=== PATIENT | male | born 1965 | race Caucasian/White ===

== ENCOUNTER → 2016-10-29 | Outpatient (REF) | payer MEDICARE ==
[~2016-10-29] MED LIST: ADDE10CA PO
[2016-10-29 14:47] LABS: ALBUMIN/GLOBULIN RATIO 1.38 (1.00-1.93); ALKALINE PHOSPHATASE 116 U/L (45-117); ALT/SGPT 19 U/L (12-78); ANION GAP 8 MEQ/L (8-16); AST/SGOT 16 U/L (15-37); BILIRUBIN,TOTAL 0.2 MG/DL (0.2-1.0); BLOOD UREA NITROGEN 5 MG/DL (7-18); CARBON DIOXIDE LEVEL 30 MEQ/L (21-32); CHLORIDE LEVEL 105 MEQ/L (98-107); CHOLESTEROL LEVEL 192 MG/DL (<200); CREATININE FOR GFR 1.09 MG/DL (0.70-1.30); GLOMERULAR FILTRATION RATE > 60.0 (>56); GLUCOSE, FASTING 102 MG/DL (70-105); POTASSIUM SERUM 4.5 MEQ/L (3.5-5.1); SODIUM LEVEL 143 MEQ/L (136-145); TOTAL PROTEIN 6.9 GM/DL (6.4-8.2); TRIGLYCERIDES LEVEL 223 MG/DL (<150)
[2016-10-31 00:06] LABS: %CD3+CD4+CD8+ 2.3 % (Not Estab.); %CD3+CD4+CD8- 44.3 % (Not Estab.); %CD3+CD4-CD8+ 25.2 % (Not Estab.); %CD3+CD4-CD8- 0.9 % (Not Estab.); ABS CD3+CD4+CD8+ 74 /uL (Not Estab.); ABS CD3+CD4+CD8- 1418 /uL (Not Estab.); ABS CD3+CD4-CD8+ 806 /uL (Not Estab.); ABS CD3+CD4-CD8- 29 /uL (Not Estab.); CD4/CD8 NYSDOH RATIO 1.76 (Not Estab.); Eosinophils 2 % (.); HGB 14.8 g/dL (12.6-17.7); Monocytes 8 % (.); Neutrophils 57 % (.); WBC 10.5 x10E3/uL (3.4-10.8)
== END | disposition home or self-care (01) ==
LOC: M SFHCPLAZ 12:25
PROVIDERS: ATTEND Internal Medicine Infectious Disease
DX: B20 Human immunodeficiency virus [HIV] disease (principal); E78.2 Mixed hyperlipidemia; Z12.5 Encounter for screening for malignant neoplasm of prostate; E83.52 Hypercalcemia; Z23 Encounter for immunization
CPT/HCPCS: 36415; 80053; 80061; 83970; 86360; 86780; 87536; 90686; G0008; G0103; G0463

== ENCOUNTER → 2017-04-03 | Outpatient (REF) | payer MEDICARE, MEDICAID ==
[~2017-04-03] MED LIST changes: -ADDE10CA PO; +ADDE10CA3 PO
[2017-04-03 18:46] LABS: ALBUMIN 3.9 GM/DL (3.2-5.2); ALKALINE PHOSPHATASE 122 U/L (45-117); ALT/SGPT 17 U/L (12-78); ANION GAP 5 MEQ/L (8-16); AST/SGOT 10 U/L (15-37); BILIRUBIN,TOTAL 0.3 MG/DL (0.2-1.0); BLOOD UREA NITROGEN 6 MG/DL (7-18); CALCIUM LEVEL 10.5 MG/DL (8.5-10.1); CARBON DIOXIDE LEVEL 27 MEQ/L (21-32); CHLORIDE LEVEL 108 MEQ/L (98-107); CREATININE FOR GFR 1.05 MG/DL (0.70-1.30); GLOMERULAR FILTRATION RATE > 60.0 (>56); GLUCOSE, FASTING 103 MG/DL (70-105); POTASSIUM SERUM 4.3 MEQ/L (3.5-5.1); SODIUM LEVEL 140 MEQ/L (136-145); TOTAL PROTEIN 6.9 GM/DL (6.4-8.2)
[2017-04-07 14:10] LABS: CHLAMYDIA RECTAL APTIMA Negative (Negative); GC RECTAL APTIMA Negative (Negative)
[2017-04-07 14:10] LABS: %CD3+CD4+CD8+ 2.7 % (Not Estab.); %CD3+CD4+CD8- 47.2 % (Not Estab.); %CD3+CD4-CD8+ 25.9 % (Not Estab.); %CD3+CD4-CD8- 1.2 % (Not Estab.); ABS CD3+CD4+CD8+ 84 /uL (Not Estab.); ABS CD3+CD4+CD8- 1463 /uL (Not Estab.); ABS CD3+CD4-CD8+ 803 /uL (Not Estab.); ABS CD3+CD4-CD8- 37 /uL (Not Estab.); CD4/CD8 NYSDOH RATIO 1.82 (Not Estab.); CHLAMYDIA PHARYNGEAL APTIMA Negative (Negative); Eosinophils 3 % (.); GC PHARYNGEAL APTIMA Negative (Negative); HCT 41.9 % (37.5-51.0); HGB 14.1 g/dL (12.6-17.7); Monocytes 9 % (.); Neutrophils 50 % (.); WBC 8.7 x10E3/uL (3.4-10.8)
== END ==
LOC: M SFHCPLAZ 14:05
PROVIDERS: ATTEND Internal Medicine Infectious Disease
DX: B20 Human immunodeficiency virus [HIV] disease (principal); A09 Infectious gastroenteritis and colitis, unspecified; F17.210 Nicotine dependence, cigarettes, uncomplicated; Z88.8 Allergy status to other drugs, medicaments and biological substances; Z11.3 Encounter for screening for infections with a predominantly sexual mode of transmission; Z72.53 High risk bisexual behavior
CPT/HCPCS: 36415; 80053; 86360; 86780; 87491; 87536; 87591; 88108; 93005; G0463

== ENCOUNTER → 2017-09-23 | Outpatient (REF) | payer MEDICARE ==
[2017-09-23 16:11] LABS: ALBUMIN 4.3 GM/DL (3.2-5.2); ALBUMIN/GLOBULIN RATIO 1.39 (1.00-1.93); ALKALINE PHOSPHATASE 131 U/L (45-117); ALT/SGPT 24 U/L (12-78); ANION GAP 7 MEQ/L (8-16); AST/SGOT 19 U/L (7-37); BILIRUBIN,TOTAL 0.6 MG/DL (0.2-1.0); BLOOD UREA NITROGEN 8 MG/DL (7-18); CALCIUM LEVEL 9.9 MG/DL (8.5-10.1); CARBON DIOXIDE LEVEL 26 MEQ/L (21-32); CHLORIDE LEVEL 105 MEQ/L (98-107); CHOLESTEROL LEVEL 199 MG/DL (<200); CREATININE FOR GFR 1.08 MG/DL (0.70-1.30); GLOMERULAR FILTRATION RATE > 60.0 (>56); GLUCOSE, FASTING 117 MG/DL (70-105); HDL CHOLESTEROL 27 MG/DL (>40); LDL CHOLESTEROL 116.6 MG/DL (<100); NON-HDL-C 172 MG/DL; POTASSIUM SERUM 4.4 MEQ/L (3.5-5.1); SODIUM LEVEL 138 MEQ/L (136-145); THYROID STIMULATING HORMONE 0.764 uIU/ML (0.358-3.740); TOTAL PROTEIN 7.4 GM/DL (6.4-8.2); TRIGLYCERIDES LEVEL 277 MG/DL (<150)
[2017-09-23 18:21] LABS: APPEARANCE, URINE CLEAR (CLEAR); BACTERIA, URINE AUTO NEGATIVE (NEGATIVE); BILIRUBIN, URINE AUTO NEGATIVE (NEGATIVE); BLOOD, URINE BLOOD NEGATIVE (NEGATIVE); COLOR, URINE YELLOW (YELLOW); GLUCOSE, URINE (UA) AUTO NEGATIVE (NEGATIVE); KETONE, URINE AUTO NEGATIVE (NEGATIVE); LEUKOCYTE ESTERASE, URINE AUTO NEGATIVE (NEGATIVE); NITRITE, URINE AUTO NEGATIVE (NEGATIVE); PROTEIN, URINE AUTO NEGATIVE (NEGATIVE); RBC, URINE AUTO 5 /HPF (0-3); SPECIFIC GRAVITY URINE AUTO 1.008 (1.002-1.035); SQUAMOUS EPITHELIAL CELL UR AU 0 /HPF (0-6); UROBILINOGEN, URINE AUTO 0.2 mg/dL (0.0-2.0); WBC, URINE AUTO 1 /HPF (0-3)
[2017-09-23 21:15] LABS: CHLAMYDIA DNA AMPLIFICATION NEGATIVE (NEGATIVE); GC DNA AMPLIFICATION NEGATIVE (NEGATIVE)
[2017-09-27 00:06] LABS: % CD8 Pos Lymph 29.6 % (12.0-35.5); %CD4 Pos Lymphs 48.4 % (30.8-58.5); ABS Basophils 0.1 x10E3/uL (0.0-0.2); ABS Eosinophils 0.3 x10E3/uL (0.0-0.4); ABS Lymphs 3.1 x10E3/uL (0.7-3.1); ABS Monocytes 0.8 x10E3/uL (0.1-0.9); ABS Neutophils 7.3 x10E3/uL (1.4-7.0); Abs CD4 Helper 1500 /uL (359-1519); Abs CD8 Suppres 918 /uL (109-897); CD4/CD8 Ratio 1.64 (0.92-3.72); Eosinophils 3 % (Not Estab.); HCT 44.5 % (37.5-51.0); HGB 14.6 g/dL (13.0-17.7); HIV-1 RNA PCR QUANT 2 LC550285 <20 copies/mL (.); Immature Grans 0 % (Not Estab.); Lymphocytes 27 % (Not Estab.); MCH 30.9 pg (26.6-33.0); MCHC 32.8 g/dL (31.5-35.7); MCV 94 fL (79-97); Monocytes 7 % (Not Estab.); Neutrophils 62 % (Not Estab.); Platelets 281 x10E3/uL (150-379); QUANTIFERON GOLD TB Negative (Negative); RBC 4.72 x10E6/uL (4.14-5.80); RDW 14.4 % (12.3-15.4); TB Test (QFT) Antigen 0.03 IU/mL (.); TB Test (QFT) Antigen Minus Ni <0.01 IU/mL (.); TB Test (QFT) Mitogen 9.52 IU/mL (.); TB Test (QFT) Nil 0.05 IU/mL (.); WBC 11.6 x10E3/uL (3.4-10.8)
== END ==
LOC: M SFHCPLAZ 13:58
DX: B20 Human immunodeficiency virus [HIV] disease (principal); I10 Essential (primary) hypertension; E78.2 Mixed hyperlipidemia; Z23 Encounter for immunization
CPT/HCPCS: 84443

== ENCOUNTER → 2017-12-22 | Outpatient (REF) | payer MEDICARE | LOC: M SFHCLERA 12:06 | DX: L72.0 Epidermal cyst (principal) | CPT/HCPCS: 88305 ==

== ENCOUNTER → 2018-05-04 | Outpatient (REF) | payer MEDICARE ==
[2018-05-04 13:34] LABS: APPEARANCE, URINE CLEAR (CLEAR); BACTERIA, URINE AUTO NEGATIVE (NEGATIVE); BILIRUBIN, URINE AUTO NEGATIVE (NEGATIVE); BLOOD, URINE BLOOD NEGATIVE (NEGATIVE); COLOR, URINE STRAW (YELLOW); GLUCOSE, URINE (UA) AUTO NEGATIVE (NEGATIVE); KETONE, URINE AUTO NEGATIVE (NEGATIVE); LEUKOCYTE ESTERASE, URINE AUTO NEGATIVE (NEGATIVE); NITRITE, URINE AUTO NEGATIVE (NEGATIVE); PROTEIN, URINE AUTO NEGATIVE (NEGATIVE); RBC, URINE AUTO 0 /HPF (0-3); SPECIFIC GRAVITY URINE AUTO 1.002 (1.002-1.035); SQUAMOUS EPITHELIAL CELL UR AU 0 /HPF (0-6); UROBILINOGEN, URINE AUTO 0.2 mg/dL (0.0-2.0); WBC, URINE AUTO 0 /HPF (0-3)
[2018-05-04 14:42] LABS: CHLAMYDIA DNA AMPLIFICATION NEGATIVE (NEGATIVE); GC DNA AMPLIFICATION NEGATIVE (NEGATIVE)
== END ==
LOC: M SMT 12:49
DX: N50.819 Testicular pain, unspecified (principal); B20 Human immunodeficiency virus [HIV] disease
CPT/HCPCS: 80053; 81001

== ENCOUNTER → 2018-05-04 | Outpatient (REF) | payer MEDICARE ==
[2018-05-04 16:50] LABS: ALBUMIN 3.6 GM/DL (3.2-5.2); ALBUMIN/GLOBULIN RATIO 1.06 (1.00-1.93); ALKALINE PHOSPHATASE 140 U/L (45-117); ALT/SGPT 21 U/L (12-78); ANION GAP 12 MEQ/L (8-16); AST/SGOT 17 U/L (7-37); BILIRUBIN,TOTAL 0.3 MG/DL (0.2-1.0); BLOOD UREA NITROGEN 6 MG/DL (7-18); CALCIUM LEVEL 10.2 MG/DL (8.5-10.1); CARBON DIOXIDE LEVEL 21 MEQ/L (21-32); CHLORIDE LEVEL 110 MEQ/L (98-107); CREATININE FOR GFR 1.18 MG/DL (0.70-1.30); GLOMERULAR FILTRATION RATE > 60.0 (>56); GLUCOSE, FASTING 140 MG/DL (70-100); POTASSIUM SERUM 4.3 MEQ/L (3.5-5.1); SODIUM LEVEL 143 MEQ/L (136-145)
== END ==
LOC: M SFHCPLAZ 13:17
DX: B20 Human immunodeficiency virus [HIV] disease (principal)
CPT/HCPCS: 80053

== ENCOUNTER → 2018-06-29 | Outpatient (CLI) | payer MEDICARE | LOC: M RAD 13:19 | DX: N50.3 Cyst of epididymis (principal); N50.89 Other specified disorders of the male genital organs | CPT/HCPCS: 76870 ==

== ENCOUNTER → 2018-07-28 | Outpatient (REF) | payer MEDICARE ==
[2018-07-28 10:45] LABS: HEMATOCRIT 45.2 % (42.0-52.0); HEMOGLOBIN 15.3 g/dl (13.5-17.5); MEAN CORPUSCULAR HEMOGLOBIN 31.2 pg (27.0-33.0); MEAN CORPUSCULAR HGB CONC 33.8 g/dl (32.0-36.5); MEAN CORPUSCULAR VOLUME 92.2 fl (80.0-96.0); PLATELET COUNT, AUTOMATED 245 10^3/uL (150-450); RED CELL DISTRIBUTION WIDTH 13.1 % (11.5-14.5); WHITE BLOOD COUNT 10.1 10^3/uL (4.0-10.0)
[2018-07-28 10:58] LABS: INR 1.04; PARTIAL THROMBOPLASTIN TIME 31.6 SECONDS (25.4-37.6); PROTHROMBIN TIME 13.7 SECONDS (12.1-14.4)
[2018-07-28 11:11] LABS: ANION GAP 9 MEQ/L (8-16); BLOOD UREA NITROGEN 6 MG/DL (7-18); CALCIUM LEVEL 10.1 MG/DL (8.5-10.1); CARBON DIOXIDE LEVEL 21 MEQ/L (21-32); CHLORIDE LEVEL 109 MEQ/L (98-107); CREATININE FOR GFR 1.16 MG/DL (0.70-1.30); GLOMERULAR FILTRATION RATE > 60.0 (>56); GLUCOSE, FASTING 109 MG/DL (70-100); POTASSIUM SERUM 4.5 MEQ/L (3.5-5.1); SODIUM LEVEL 139 MEQ/L (136-145)
== END ==
LOC: M LABSMT 08:42
DX: Z01.818 Encounter for other preprocedural examination (principal); N50.3 Cyst of epididymis; B20 Human immunodeficiency virus [HIV] disease; Z23 Encounter for immunization
CPT/HCPCS: 80048

== ENCOUNTER 2018-08-11 13:10 | Day surgery (SDC) | payer MEDICARE ==
[2018-08-11] MEDS ORDERED: ceFAZolin 2 GM/D5W 50 ML IV BAG (J0690 PER 500MG) As Ordered (13:25)
[2018-08-11] MEDS: LR 1,000 ML IV (14:07)
[2018-08-11] MEDS ORDERED: PROPOFOL 200 MG/20 ML VIAL As Ordered (15:13)
[2018-08-11] MEDS ORDERED: LIDOCAINE 2% INJ 100 MG/5 ML SDV (FOR ANES.) As Ordered (15:13)
[2018-08-11] MEDS ORDERED: MIDAZOLAM INJ 2 MG/2 ML VIAL (J2250) As Ordered (15:14)
[2018-08-11] MEDS ORDERED: fentaNYL 250 MCG/5 ML INJECTION (J3010) As Ordered (15:14)
[2018-08-11] MEDS: LIDOCAINE 1% SDV INJ 30 ML VIAL As Ordered (16:23)
[2018-08-11] MEDS: BUPIVACAINE HCL 0.25% 30 ML VIAL As Ordered (16:23)
[2018-08-11] MEDS ORDERED: ONDANSETRON 4MG/2ML VIAL (J2405) As Ordered (17:02)
[2018-08-11] MEDS ORDERED: KETOROLAC 60 MG/2 ML VIAL (J1885) As Ordered (17:02)
[2018-08-11] MEDS ORDERED: dexameTHASONE 4 MG/ML 1ML VIAL (J1100) As Ordered ×2 (17:03)
[2018-08-11] MEDS: BACITRACIN OINT 30GM As Ordered (17:19)
[2018-08-11] MEDS: PERCOCET 5MG/325MG TAB PO (17:40)
[2018-08-11] MEDS ORDERED: ONDANSETRON 4MG/2ML VIAL (J2405) IV (17:45)
[2018-08-11] MEDS ORDERED: PERCOCET 5MG/325MG TAB PO ×2 (17:45)
[2018-08-11] MEDS ORDERED: fentaNYL 100 MCG/2 ML INJECTION (J3010) IV (17:45)
== END 2018-08-11 18:35 | disposition home or self-care (01) ==
LOC: M SDC 13:10
DX: N50.3 Cyst of epididymis (principal); N50.89 Other specified disorders of the male genital organs; I10 Essential (primary) hypertension; E78.00 Pure hypercholesterolemia, unspecified; K21.9 Gastro-esophageal reflux disease without esophagitis; B20 Human immunodeficiency virus [HIV] disease; M12.9 Arthropathy, unspecified; M50.10 Cervical disc disorder with radiculopathy, unspecified cervical region; M79.7 Fibromyalgia; M81.0 Age-related osteoporosis without current pathological fracture; K59.01 Slow transit constipation; E83.52 Hypercalcemia; J44.9 Chronic obstructive pulmonary disease, unspecified; L40.9 Psoriasis, unspecified; F41.9 Anxiety disorder, unspecified; F32.9 Major depressive disorder, single episode, unspecified; F43.10 Post-traumatic stress disorder, unspecified; G47.33 Obstructive sleep apnea (adult) (pediatric); G47.00 Insomnia, unspecified; J84.112 Idiopathic pulmonary fibrosis; Z79.899 Other long term (current) drug therapy; Z85.828 Personal history of other malignant neoplasm of skin; Z72.0 Tobacco use
CPT/HCPCS: 54860

== ENCOUNTER → 2018-11-24 | Outpatient (REF) | payer MEDICARE ==
[~2018-11-24] MED LIST changes: +ALEN70TA57; +AMLO10TA5; +BACL10TA8; +CLON0.5T8; +DESC1TAB; +DEXI60CA2; +FLUT05CR TOP; +IBUP-354; +INCR1INH INH; +LIPI20TA PO; +LYRI150C; +MIRT15TA3 PO; +NIZO2SHA TOP; +PERC7.5T11 PO; +PRAZ1CAP; +ROPI1TAB; +TIVI1TAB; +VENTAER
[2018-11-24 15:57] LABS: APPEARANCE, URINE HAZY (CLEAR); BACTERIA, URINE AUTO 1+ (NEGATIVE); BILIRUBIN, URINE AUTO NEGATIVE (NEGATIVE); BLOOD, URINE BLOOD NEGATIVE (NEGATIVE); COLOR, URINE YELLOW (YELLOW); GLUCOSE, URINE (UA) AUTO NEGATIVE (NEGATIVE); KETONE, URINE AUTO NEGATIVE (NEGATIVE); LEUKOCYTE ESTERASE, URINE AUTO NEGATIVE (NEGATIVE); NITRITE, URINE AUTO NEGATIVE (NEGATIVE); PROTEIN, URINE AUTO NEGATIVE (NEGATIVE); RBC, URINE AUTO 2 /HPF (0-3); SPECIFIC GRAVITY URINE AUTO 1.005 (1.002-1.035); SQUAMOUS EPITHELIAL CELL UR AU 0 /HPF (0-6); UROBILINOGEN, URINE AUTO 0.2 mg/dL (0.0-2.0); WBC, URINE AUTO 0 /HPF (0-3)
[2018-11-24 16:04] LABS: ALBUMIN 3.9 GM/DL (3.2-5.2); ALT/SGPT 25 U/L (12-78); BILIRUBIN,TOTAL 0.4 MG/DL (0.2-1.0); BLOOD UREA NITROGEN 7 MG/DL (7-18); CALCIUM LEVEL 9.8 MG/DL (8.5-10.1); CARBON DIOXIDE LEVEL 28 MEQ/L (21-32); CHLORIDE LEVEL 109 MEQ/L (98-107); CHOLESTEROL LEVEL 164 MG/DL (<200); CHOLESTEROL RISK RATIO 6.833 (<5); GLOMERULAR FILTRATION RATE > 60.0 (>56); GLUCOSE, FASTING 93 MG/DL (70-100); HDL CHOLESTEROL 24 MG/DL (>40); LDL CHOLESTEROL 72 MG/DL (<100); NON-HDL-C 140 MG/DL; POTASSIUM SERUM 4.4 MEQ/L (3.5-5.1); SODIUM LEVEL 142 MEQ/L (136-145); TRIGLYCERIDES LEVEL 338 MG/DL (<150)
[2018-11-24 16:14] LABS: TOTAL 25(OH) VITAMIN D 16.5 NG/ML (30.0-100.0)
[2018-11-28 00:06] LABS: % CD8 Pos Lymph 27.1 % (12.0-35.5); %CD4 Pos Lymphs 49.9 % (30.8-58.5); ABS Basophils 0.1 x10E3/uL (0.0-0.2); ABS Eosinophils 0.3 x10E3/uL (0.0-0.4); ABS Lymphs 3.4 x10E3/uL (0.7-3.1); ABS Monocytes 0.9 x10E3/uL (0.1-0.9); ABS Neutophils 3.8 x10E3/uL (1.4-7.0); Abs CD4 Helper 1697 /uL (359-1519); Abs CD8 Suppres 921 /uL (109-897); CD4/CD8 Ratio 1.84 (0.92-3.72); Eosinophils 3 % (Not Estab.); HCT 44.2 % (37.5-51.0); HGB 15.1 g/dL (13.0-17.7); HIV-1 RNA PCR QUANT 2 LC550285 <20 copies/mL (.); Immature Grans 1 % (Not Estab.); Lymphocytes 40 % (Not Estab.); MCH 31.5 pg (26.6-33.0); MCHC 34.2 g/dL (31.5-35.7); MCV 92 fL (79-97); Monocytes 11 % (Not Estab.); Neutrophils 44 % (Not Estab.); Platelets 239 x10E3/uL (150-379); RBC 4.79 x10E6/uL (4.14-5.80); RDW 14.3 % (12.3-15.4); WBC 8.6 x10E3/uL (3.4-10.8)
== END ==
LOC: M SFHCPLAZ 13:00
PROVIDERS: ATTEND Internal Medicine Infectious Disease
DX: B20 Human immunodeficiency virus [HIV] disease (principal); M81.0 Age-related osteoporosis without current pathological fracture; I10 Essential (primary) hypertension
CPT/HCPCS: 36415; 80053; 80061; 81001; 82306; 86360; 86480; 87536; G0463

== ENCOUNTER → 2019-08-09 | Outpatient (REF) | payer MEDICARE, OTHER ==
[~2019-08-09] MED LIST changes: -ALEN70TA57; +ALEN70TA74; +CLON0.5T2; -CLON0.5T8
[2019-08-09 16:40] LABS: ALBUMIN 3.6 GM/DL (3.2-5.2); ALT/SGPT 26 U/L (12-78); BILIRUBIN,TOTAL 0.5 MG/DL (0.2-1.0); BLOOD UREA NITROGEN 7 MG/DL (7-18); CALCIUM LEVEL 9.7 MG/DL (8.5-10.1); CARBON DIOXIDE LEVEL 27 MEQ/L (21-32); CHLORIDE LEVEL 106 MEQ/L (98-107); CHOLESTEROL LEVEL 133 MG/DL (<200); CHOLESTEROL RISK RATIO 5.541 (<5); GLOMERULAR FILTRATION RATE > 60.0 (>56); GLUCOSE, FASTING 110 MG/DL (70-100); HDL CHOLESTEROL 24 MG/DL (>40); LDL CHOLESTEROL 66 MG/DL (<100); NON-HDL-C 109 MG/DL; POTASSIUM SERUM 4.4 MEQ/L (3.5-5.1); SODIUM LEVEL 138 MEQ/L (136-145); TOTAL PROTEIN 6.6 GM/DL (6.4-8.2); TRIGLYCERIDES LEVEL 213 MG/DL (<150)
[2019-08-09 16:46] LABS: TOTAL 25(OH) VITAMIN D 46.8 NG/ML (30.0-100.0)
[2019-08-09 17:56] LABS: CHLAMYDIA DNA AMPLIFICATION NEGATIVE (NEGATIVE); GC DNA AMPLIFICATION NEGATIVE (NEGATIVE)
[2019-08-13 00:07] LABS: % CD8 Pos Lymph 32.2 % (12.0-35.5); %CD4 Pos Lymphs 47.4 % (30.8-58.5); ABS Basophils 0.1 x10E3/uL (0.0-0.2); ABS Eosinophils 0.3 x10E3/uL (0.0-0.4); ABS Lymphs 3.1 x10E3/uL (0.7-3.1); ABS Monocytes 0.9 x10E3/uL (0.1-0.9); ABS Neutophils 7.1 x10E3/uL (1.4-7.0); Abs CD4 Helper 1469 /uL (359-1519); Abs CD8 Suppres 998 /uL (109-897); CD4/CD8 Ratio 1.47 (0.92-3.72); Eosinophils 2 % (Not Estab.); HCT 43.3 % (37.5-51.0); HGB 14.4 g/dL (13.0-17.7); HIV-1 RNA PCR QUANT 2 LC550285 <20 copies/mL (.); Immature Grans 0 % (Not Estab.); Lymphocytes 28 % (Not Estab.); MCH 30.6 pg (26.6-33.0); MCHC 33.3 g/dL (31.5-35.7); MCV 92 fL (79-97); Monocytes 8 % (Not Estab.); Neutrophils 62 % (Not Estab.); Platelets 207 x10E3/uL (150-450); WBC 11.4 x10E3/uL (3.4-10.8)
== END ==
LOC: M SFHCPLAZ 13:53
PROVIDERS: ATTEND Internal Medicine Infectious Disease
DX: B20 Human immunodeficiency virus [HIV] disease (principal); E55.9 Vitamin D deficiency, unspecified; L40.9 Psoriasis, unspecified
CPT/HCPCS: 36415; 80053; 80061; 82306; 86360; 86780; 87491; 87536; 87591; 90682; 90732; G0008; G0009; G0463

== ENCOUNTER → 2020-05-02 | Outpatient (REF) | payer MEDICARE, OTHER ==
[~2020-05-02] MED LIST changes: -AMLO10TA5; +AMLO1TAB25; -ROPI1TAB; +ROPI1TAB3
[2020-06-12 08:07] LABS: Abs CD4 Helper See Separate Report; HIV-1 RNA PCR QUANT 2 LC550285 SEE SEPARATE REPORT (NORMAL)
[2020-06-16 11:20] LABS: CALCIUM LEVEL 10.2 MG/DL (8.5-10.1); CHOLESTEROL RISK RATIO 6.2 (<5); PHOSPHORUS LEVEL 2.9 MG/DL (2.5-4.9)
== END | disposition home or self-care (01) ==
LOC: M SFHCPLAZ 14:45
PROVIDERS: ATTEND Internal Medicine Infectious Disease
DX: B20 Human immunodeficiency virus [HIV] disease (principal); Z79.899 Other long term (current) drug therapy

== ENCOUNTER → 2021-01-15 | Outpatient (CLI) | payer MEDICARE, OTHER ==
[~2021-01-15] MED LIST changes: -ALEN70TA74; +ALEN70TA82
[2021-01-15 14:54] LABS: APPEARANCE, URINE CLEAR (CLEAR); BACTERIA, URINE AUTO NEGATIVE (NEGATIVE); BILIRUBIN, URINE AUTO NEGATIVE (NEGATIVE); BLOOD, URINE BLOOD NEGATIVE (NEGATIVE); COLOR, URINE YELLOW (YELLOW); GLUCOSE, URINE (UA) AUTO NEGATIVE (NEGATIVE); KETONE, URINE AUTO NEGATIVE (NEGATIVE); LEUKOCYTE ESTERASE, URINE AUTO NEGATIVE (NEGATIVE); MUCUS, URINE SMALL (NEGATIVE); NITRITE, URINE AUTO NEGATIVE (NEGATIVE); PROTEIN, URINE AUTO NEGATIVE (NEGATIVE); RBC, URINE AUTO 1 /HPF (0-3); SPECIFIC GRAVITY URINE AUTO 1.011 (1.002-1.035); SQUAMOUS EPITHELIAL CELL UR AU 0 /HPF (0-6); UROBILINOGEN, URINE AUTO 0.2 mg/dL (0.0-2.0); WBC, URINE AUTO 2 /HPF (0-3)
[2021-01-15 15:28] LABS: ALBUMIN 3.9 GM/DL (3.2-5.2); ALT/SGPT 22 U/L (12-78); BILIRUBIN,TOTAL 0.3 MG/DL (0.2-1.0); BLOOD UREA NITROGEN 10 MG/DL (7-18); CALCIUM LEVEL 11.1 MG/DL (8.5-10.1); CARBON DIOXIDE LEVEL 27 MEQ/L (21-32); CHLORIDE LEVEL 109 MEQ/L (98-107); CREATININE FOR GFR 1.07 MG/DL (0.70-1.30); FREE T4 0.75 NG/DL (0.76-1.46); GLOMERULAR FILTRATION RATE > 60.0 (>56); GLUCOSE, FASTING 104 MG/DL (70-100); MAGNESIUM LEVEL 2.4 MG/DL (1.8-2.4); POTASSIUM SERUM 4.4 MEQ/L (3.5-5.1); SODIUM LEVEL 139 MEQ/L (136-145); TOTAL 25(OH) VITAMIN D 49.6 NG/ML (30.0-100.0); TOTAL PROTEIN 7.2 GM/DL (6.4-8.2)
[2021-01-18 02:07] LABS: % CD8 Pos Lymph 28.7 % (12.0-35.5); %CD4 Pos Lymphs 58.7 % (30.8-58.5); ABS Basophils 0.1 x10E3/uL (0.0-0.2); ABS Eosinophils 0.1 x10E3/uL (0.0-0.4); ABS Lymphs 2.1 x10E3/uL (0.7-3.1); ABS Monocytes 0.6 x10E3/uL (0.1-0.9); Abs CD4 Helper 1233 /uL (359-1519); Abs CD8 Suppres 603 /uL (109-897); CD4/CD8 Ratio 2.05 (0.92-3.72); Eosinophils 1 % (Not Estab.); HCT 43.9 % (37.5-51.0); HGB 14.9 g/dL (13.0-17.7); HIV-1 RNA PCR QUANT 2 LC550285 17500 copies/mL (.); HIV-1 RNA PCR QUANT 3 LC550285 4.243 (.); Imm ABS Grans 0.2 x10E3/uL (0.0-0.1); Immature Grans 2 % (Not Estab.); Lymphocytes 31 % (Not Estab.); MCH 31.5 pg (26.6-33.0); MCHC 33.9 g/dL (31.5-35.7); MCV 93 fL (79-97); Monocytes 8 % (Not Estab.); Neutrophils 57 % (Not Estab.); Platelets 274 x10E3/uL (150-450); RBC 4.73 x10E6/uL (4.14-5.80)
== END ==
LOC: M LAB 14:10
PROVIDERS: ATTEND Internal Medicine Infectious Disease
DX: M81.0 Age-related osteoporosis without current pathological fracture (principal); B20 Human immunodeficiency virus [HIV] disease; M54.41 Lumbago with sciatica, right side; R25.1 Tremor, unspecified; Z79.899 Other long term (current) drug therapy
CPT/HCPCS: 36415; 80053; 81001; 82306; 83735; 84439; 84443; 86360; 87086; 87536; G0463

== ENCOUNTER → 2021-01-15 | Outpatient (CLI) | payer MEDICARE, OTHER ==
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
== END ==
LOC: M PAIN 13:00
PROVIDERS: ATTEND Family Medicine
DX: M51.17 Intervertebral disc disorders with radiculopathy, lumbosacral region (principal); F33.9 Major depressive disorder, recurrent, unspecified; F41.1 Generalized anxiety disorder; G47.00 Insomnia, unspecified; E78.00 Pure hypercholesterolemia, unspecified; M79.7 Fibromyalgia; L40.9 Psoriasis, unspecified; G25.81 Restless legs syndrome; G89.29 Other chronic pain; K21.9 Gastro-esophageal reflux disease without esophagitis; J42 Unspecified chronic bronchitis; M81.0 Age-related osteoporosis without current pathological fracture; M50.10 Cervical disc disorder with radiculopathy, unspecified cervical region; I10 Essential (primary) hypertension; F43.10 Post-traumatic stress disorder, unspecified; F17.210 Nicotine dependence, cigarettes, uncomplicated; Z79.891 Long term (current) use of opiate analgesic; Z79.899 Other long term (current) drug therapy; Z88.6 Allergy status to analgesic agent; Z88.8 Allergy status to other drugs, medicaments and biological substances

== ENCOUNTER → 2021-03-15 | Outpatient (REF) | payer MEDICARE, OTHER ==
[2021-03-15 15:53] LABS: BLOOD UREA NITROGEN 7 MG/DL (7-18); CALCIUM LEVEL 10.4 MG/DL (8.5-10.1); CARBON DIOXIDE LEVEL 29 MEQ/L (21-32); CHLORIDE LEVEL 110 MEQ/L (98-107); GLOMERULAR FILTRATION RATE > 60.0 (>56); GLUCOSE, FASTING 94 MG/DL (70-100); MAGNESIUM LEVEL 2.1 MG/DL (1.8-2.4); PHOSPHORUS LEVEL 2.9 MG/DL (2.5-4.9); POTASSIUM SERUM 4.4 MEQ/L (3.5-5.1); SODIUM LEVEL 141 MEQ/L (136-145)
[2021-03-15 16:03] LABS: PTH INTACT 103.5 PG/ML (18.5-88.0)
[2021-03-19 11:08] LABS: HIV-1 RNA PCR QUANT 3 LC550285 1.602 (.)
== END ==
LOC: M SFHCPLAZ 14:20
PROVIDERS: ATTEND Internal Medicine Infectious Disease
DX: E83.52 Hypercalcemia (principal); B20 Human immunodeficiency virus [HIV] disease
CPT/HCPCS: 36415; 80048; 82330; 83735; 83970; 84100; 87536; G0463

== ENCOUNTER → 2021-09-03 | Outpatient (CLI) | payer MEDICARE ==
[2021-09-03 19:22] LABS: APPEARANCE, URINE CLEAR (CLEAR); BACTERIA, URINE AUTO NEGATIVE (NEGATIVE); BILIRUBIN, URINE AUTO NEGATIVE (NEGATIVE); BLOOD, URINE BLOOD NEGATIVE (NEGATIVE); COLOR, URINE YELLOW (YELLOW); GLUCOSE, URINE (UA) AUTO NEGATIVE (NEGATIVE); KETONE, URINE AUTO NEGATIVE (NEGATIVE); LEUKOCYTE ESTERASE, URINE AUTO NEGATIVE (NEGATIVE); NITRITE, URINE AUTO NEGATIVE (NEGATIVE); PROTEIN, URINE AUTO NEGATIVE (NEGATIVE); RBC, URINE AUTO 0 /HPF (0-3); SPECIFIC GRAVITY URINE AUTO 1.008 (1.002-1.035); SQUAMOUS EPITHELIAL CELL UR AU 0 /HPF (0-6); UROBILINOGEN, URINE AUTO 0.2 mg/dL (0.0-2.0); WBC, URINE AUTO 2 /HPF (0-3)
[2021-09-03 20:25] LABS: GC DNA AMPLIFICATION NEGATIVE (NEGATIVE)
[2021-09-03 21:28] LABS: ALBUMIN 3.7 GM/DL (3.2-5.2); ALT/SGPT 20 U/L (12-78); BILIRUBIN,TOTAL 0.3 MG/DL (0.2-1.0); BLOOD UREA NITROGEN 8 MG/DL (7-18); CALCIUM LEVEL 10.8 MG/DL (8.5-10.1); CARBON DIOXIDE LEVEL 26 MEQ/L (21-32); CHLORIDE LEVEL 109 MEQ/L (98-107); CHOLESTEROL LEVEL 193 MG/DL (<200); CHOLESTEROL RISK RATIO 7.148 (<5); CREATININE FOR GFR 0.99 MG/DL (0.70-1.30); GLOMERULAR FILTRATION RATE > 60.0 (>56); GLUCOSE, FASTING 101 MG/DL (70-100); HDL CHOLESTEROL 27 MG/DL (>40); LDL CHOLESTEROL 134 MG/DL (<100); NON-HDL-C 166 MG/DL; POTASSIUM SERUM 4.2 MEQ/L (3.5-5.1); SODIUM LEVEL 140 MEQ/L (136-145); TRIGLYCERIDES LEVEL 160 MG/DL (<150)
[2021-09-03 21:30] LABS: TOTAL 25(OH) VITAMIN D 35.9 NG/ML (30.0-100.0)
[2021-09-05 15:08] LABS: % CD8 Pos Lymph 24.7 % (12.0-35.5); %CD4 Pos Lymphs 56.1 % (30.8-58.5); ABS Basophils 0.1 x10E3/uL (0.0-0.2); ABS Eosinophils 0.2 x10E3/uL (0.0-0.4); ABS Lymphs 3.1 x10E3/uL (0.7-3.1); ABS Monocytes 0.7 x10E3/uL (0.1-0.9); ABS Neutophils 5.7 x10E3/uL (1.4-7.0); Abs CD4 Helper 1739 /uL (359-1519); Abs CD8 Suppres 766 /uL (109-897); CD4/CD8 Ratio 2.27 (0.92-3.72); Eosinophils 2 % (Not Estab.); HCT 43.9 % (37.5-51.0); HIV-1 RNA PCR QUANT 2 LC550285 <20 copies/mL (.); Imm ABS Grans 0.1 x10E3/uL (0.0-0.1); Immature Grans 1 % (Not Estab.); Lymphocytes 31 % (Not Estab.); MCH 31.1 pg (26.6-33.0); MCHC 34.2 g/dL (31.5-35.7); MCV 91 fL (79-97); Monocytes 7 % (Not Estab.); Neutrophils 58 % (Not Estab.); Platelets 261 x10E3/uL (150-450); RBC 4.83 x10E6/uL (4.14-5.80); RDW 13.6 % (11.6-15.4); WBC 9.9 x10E3/uL (3.4-10.8)
== END ==
LOC: M PLALAB 14:29
PROVIDERS: ATTEND Internal Medicine Infectious Disease
DX: B20 Human immunodeficiency virus [HIV] disease (principal); M81.0 Age-related osteoporosis without current pathological fracture; E78.2 Mixed hyperlipidemia; Z23 Encounter for immunization
CPT/HCPCS: 36415; 80053; 80061; 81001; 82306; 86360; 86780; 87491; 87536; 87591; 90471; 90682; G0463

== ENCOUNTER → 2022-04-26 | Outpatient (CLI) | payer MEDICARE, OTHER | LOC: M PAIN 13:00 | PROVIDERS: ATTEND Nurse Practitioner Family | DX: M79.18 Myalgia, other site (principal); B20 Human immunodeficiency virus [HIV] disease; J42 Unspecified chronic bronchitis; F33.1 Major depressive disorder, recurrent, moderate; F41.1 Generalized anxiety disorder; E78.00 Pure hypercholesterolemia, unspecified; M79.7 Fibromyalgia; Z85.828 Personal history of other malignant neoplasm of skin; F43.10 Post-traumatic stress disorder, unspecified; L40.9 Psoriasis, unspecified; L30.9 Dermatitis, unspecified; G25.81 Restless legs syndrome; M51.36 Other intervertebral disc degeneration, lumbar region; G47.33 Obstructive sleep apnea (adult) (pediatric); G89.29 Other chronic pain; K21.9 Gastro-esophageal reflux disease without esophagitis; M81.0 Age-related osteoporosis without current pathological fracture; M50.10 Cervical disc disorder with radiculopathy, unspecified cervical region; I10 Essential (primary) hypertension; Z87.891 Personal history of nicotine dependence; Z79.899 Other long term (current) drug therapy; Z88.8 Allergy status to other drugs, medicaments and biological substances ==